=== PATIENT | female | born 2000 | race Caucasian/White ===

== ENCOUNTER → 2021-07-20 14:46 | Outpatient (CLI) | payer OTHER, SELFPAY | PROVIDERS: Visit Provider Family Medicine | DX: Z23 Encounter for immunization (principal) ==

== ENCOUNTER → 2021-12-04 | Outpatient (CLI) | payer OTHER, SELFPAY ==
[2021-12-05 10:01] LABS: Hepatitis B Surface Antibody Non-Reactive; Hepatitis B Surface Antigen Non-Reactive (Nonreactive)
[2021-12-06 19:27] LABS: Mumps Antibody,IgG 16.5 AU/mL (Immune >10.9); V-Zoster IgG (Immunity) < 135 index (Immune >165)
== END | disposition home or self-care (01) ==
DX: Z23 Encounter for immunization (principal)
CPT/HCPCS: 36415; 86706; 86735; 86765; 86787; 87340

== ENCOUNTER → 2021-12-13 | Outpatient (CLI) | payer OTHER, SELFPAY ==
[2021-12-13 14:18] LABS: Rubella IgG Reactive (Nonreactive)
== END | disposition home or self-care (01) ==
DX: Z23 Encounter for immunization (principal)
CPT/HCPCS: 36415; 86762